=== PATIENT | female | born 1950 | race Caucasian/White ===

== ENCOUNTER → 2023-08-24 14:30 | Outpatient (REF) | payer MEDICARE, BC, SELFPAY | LOC: RAD 14:30 | PROVIDERS: ATTENDING PHYSICIAN Internal Medicine | DX: I73.9 Peripheral vascular disease, unspecified (principal) | CPT/HCPCS: 93925 ==

== ENCOUNTER → 2023-09-27 10:06 | Outpatient (REF) | payer MEDICARE, BC, SELFPAY ==
[2023-09-27 11:31] LABS: % Basophils 0.4 % (0-2); % Eosinophils 0.5 % (0-6); % Immature Granulocytes 0.2 % (0-0.5); % Lymphocytes 81.8 % (20.5-51.1); % Monocytes 2.4 % (1.7-9.3); % Neutrophils 14.7 % (42.2-75.2); Absolute Basophils 0.1 10^3/uL (0-0.2); Absolute Eosinophils 0.1 10^3/uL (0-0.7); Absolute Lymphocytes 14.5 10^3/uL (1.2-3.4); Absolute Monocytes 0.4 10^3/uL (0.1-0.6); Absolute Neutrophils 2.6 10^3/uL (1.4-6.5); Hematocrit 40.3 % (37.0-47.0); Hemoglobin 12.2 g/dL (12.0-16.0); Mean Corp Hgb Conc. 30.3 g/dL (33.0-37.0); Mean Corpuscular Hgb 22.6 pg (27.0-31.0); Mean Corpuscular Volume 74.6 fL (81.0-99.0); Mean Platelet Volume 8.8 fL (7.4-10.4); Nucleated Red Blood Cells % 0 %; Platelet Count 143 10^3/uL (130-400); Red Cell Dist. Width 17.2 % (11.5-14.5); White Blood Cell Count 17.8 10^3/uL (4.8-10.8)
[2023-09-27 12:33] LABS: ALT (SGPT) 15 U/L (0-35); AST (SGOT) 23 U/L (14-36); Albumin 4.1 g/dl (3.5-5.0); Alkaline Phosphatase 71 U/L (38-126); Blood Urea Nitrogen 14 mg/dl (7-17); Calcium 9.5 mg/dl (8.4-10.2); Carbon Dioxide 27 mmol/L (22-30); Chloride 103 mmol/L (98-107); Glucose 92 mg/dl (70-99); HDL Cholesterol 56 mg/dl; LDL Cholesterol, Calculated 85 mg/dl; Sodium 140 mmol/L (135-145); Total Bilirubin 0.5 mg/dl (0.2-1.3); Total Cholesterol 160 mg/dl (50-199); Total Protein 5.9 g/dl (6.3-8.2); Triglyceride 96 mg/dl (10-149); Very Low Density Lipoprotein 19 mg/dl (0-30); eGFR > 60.00
[2023-09-27 12:40] LABS: LDH 185 U/L (120-246)
[2023-09-28 05:52] LABS: IgG 380 mg/dl (700-1600)
== END ==
LOC: REG 10:06
PROVIDERS: ATTENDING PHYSICIAN Internal Medicine Hematology & Oncology; FAMILY PHYSICIAN Internal Medicine
DX: Z00.00 Encounter for general adult medical examination without abnormal findings (principal); K21.9 Gastro-esophageal reflux disease without esophagitis; Z68.24 Body mass index [BMI] 24.0-24.9, adult; E83.52 Hypercalcemia; C91.10 Chronic lymphocytic leukemia of B-cell type not having achieved remission; Z82.49 Family history of ischemic heart disease and other diseases of the circulatory system
CPT/HCPCS: 36415; 80053; 80061; 82784; 83615; 85025

== ENCOUNTER → 2023-10-25 16:29 | Outpatient (REF) | payer MEDICARE, BC, SELFPAY | LOC: RAD 16:29 | PROVIDERS: ATTENDING PHYSICIAN Internal Medicine | DX: R60.0 Localized edema (principal) | CPT/HCPCS: 93970 ==

== ENCOUNTER → 2023-11-01 13:04 | Outpatient (REF) | payer MEDICARE, BC, SELFPAY | LOC: WDC 13:04 | PROVIDERS: ATTENDING PHYSICIAN Internal Medicine | DX: Z12.31 Encounter for screening mammogram for malignant neoplasm of breast (principal) | CPT/HCPCS: 77063; 77067 ==

== ENCOUNTER 2023-11-07 13:52 | Outpatient (RCR) | payer MEDICARE, BC, SELFPAY | END 2023-11-07 23:59 | disposition home or self-care (01) | LOC: RPT 13:52 | PROVIDERS: ATTENDING PHYSICIAN Internal Medicine | DX: M54.16 Radiculopathy, lumbar region (principal); Z73.6 Limitation of activities due to disability | CPT/HCPCS: 97010; 97110; 97140; 97163 ==

== ENCOUNTER 2023-12-05 16:29 | Outpatient (RCR) | payer MEDICARE, BC, SELFPAY | END 2023-12-05 23:59 | disposition home or self-care (01) | LOC: RPT 16:29 | PROVIDERS: ATTENDING PHYSICIAN Internal Medicine | DX: M54.16 Radiculopathy, lumbar region (principal); Z73.6 Limitation of activities due to disability | CPT/HCPCS: 97010; 97110; 97112; 97140 ==

== ENCOUNTER 2023-12-14 17:37 | Outpatient (RCR) | payer MEDICARE, BC, SELFPAY | END 2023-12-14 23:59 | disposition home or self-care (01) | LOC: RPT 17:37 | PROVIDERS: ATTENDING PHYSICIAN Internal Medicine | DX: M54.16 Radiculopathy, lumbar region (principal); Z73.6 Limitation of activities due to disability; R26.2 Difficulty in walking, not elsewhere classified; M62.81 Muscle weakness (generalized) | CPT/HCPCS: 97010; 97112 ==

== ENCOUNTER → 2024-09-06 08:38 | Outpatient (REF) | payer MEDICARE, BC, SELFPAY ==
[2024-09-06 09:58] LABS: % Basophils 0.9 % (0-2); % Eosinophils 1.7 % (0-6); % Immature Granulocytes 0.5 % (0-0.5); % Lymphocytes 43.2 % (20.5-51.1); % Neutrophils 47.7 % (42.2-75.2); Absolute Basophils 0.1 10^3/uL (0-0.2); Absolute Eosinophils 0.1 10^3/uL (0-0.7); Absolute Lymphocytes 2.5 10^3/uL (1.2-3.4); Absolute Monocytes 0.4 10^3/uL (0.1-0.6); Absolute Neutrophils 2.8 10^3/uL (1.4-6.5); Hematocrit 42.3 % (37.0-47.0); Hemoglobin 13.1 g/dL (12.0-16.0); Mean Corpuscular Hgb 23.2 pg (27.0-31.0); Mean Corpuscular Volume 74.9 fL (81.0-99.0); Mean Platelet Volume 8.3 fL (7.4-10.4); Nucleated Red Blood Cells % 0 %; Platelet Count 144 10^3/uL (130-400); Red Blood Cell Count 5.65 10^6/uL (4.20-5.40); Red Cell Dist. Width 16.9 % (11.5-14.5); White Blood Cell Count 5.8 10^3/uL (4.8-10.8)
[2024-09-06 10:12] LABS: Ammonia < 9 umol/L (9-30); Lactic Acid 0.7 mmol/L (0.7-2.0)
[2024-09-06 10:37] LABS: ALT (SGPT) 16 U/L (0-35); AST (SGOT) 20 U/L (14-36); Alkaline Phosphatase 68 U/L (38-126); Blood Urea Nitrogen 16 mg/dl (7-17); Calcium 9.8 mg/dl (8.4-10.2); Carbon Dioxide 28 mmol/L (22-30); Chloride 103 mmol/L (98-107); Creatine Phosphokinase 60 U/L (30-135); Glucose 99 mg/dl (70-99); Potassium 4.5 mmol/L (3.5-5.1); Sodium 138 mmol/L (135-145); Total Bilirubin 0.6 mg/dl (0.2-1.3); Total Protein 5.9 g/dl (6.3-8.2); eGFR 58.75
[2024-09-06 10:41] LABS: Erythrocyte Sed Rate 7 mm/hour (0-20)
[2024-09-06 10:43] LABS: Free T4 1.37 ng/dl (0.78-2.19)
[2024-09-06 10:58] LABS: TSH 1.97 uIU/ml (0.47-4.68)
[2024-09-06 11:33] LABS: Folate 3.6 ng/ml (2.76-20); Vitamin B12 227 pg/ml (239-931)
[2024-09-08 01:02] LABS: Myeloperoxidase Antibody 0 AU/mL (0-19); Serine Protease-3, IgG 0 AU/mL (0-19)
[2024-09-08 01:06] LABS: SSA 52 (Ro)(ENA) Ab, IgG 66 AU/mL (0-40); SSA 60 (Ro)(ENA) Ab, IgG 0 AU/mL (0-40); SSB (La)(ENA) Ab, IgG 0 AU/mL (0-40)
[2024-09-08 02:29] LABS: ANA, IgG Reflex to HEp-2 None Detected (None Detected)
[2024-09-08 19:11] LABS: Carnitine Ester/Free Ratio 0.6 (0.1-1.0); Carnitine, Esterified 22 umol/L (5-29); Carnitine, Free 35 umol/L (25-60); Carnitine, Total 57 umol/L (34-86)
== END ==
LOC: REG 08:38
PROVIDERS: ATTENDING PHYSICIAN Psychiatry & Neurology Neurology
DX: G93.49 Other encephalopathy (principal); G62.9 Polyneuropathy, unspecified; R53.83 Other fatigue; G72.9 Myopathy, unspecified; E71.42 Carnitine deficiency due to inborn errors of metabolism; R76.0 Raised antibody titer; M35.03 Sjogren syndrome with myopathy; D51.9 Vitamin B12 deficiency anemia, unspecified; E53.1 Pyridoxine deficiency
CPT/HCPCS: 36415; 80053; 82140; 82379; 82550; 82607; 82746; 83516; 83605; 84207; 84425; 84439; 84443; 85025; 85652; 86038; 86235; 86430

== ENCOUNTER → 2024-11-01 14:11 | Outpatient (REF) | payer MEDICARE, BC, SELFPAY | LOC: WDC 14:11 | PROVIDERS: ATTENDING PHYSICIAN Internal Medicine | DX: Z12.31 Encounter for screening mammogram for malignant neoplasm of breast (principal) | CPT/HCPCS: 77063; 77067 ==

== ENCOUNTER → 2024-11-22 13:08 | Outpatient (REF) | payer MEDICARE, BC, SELFPAY | LOC: RAD 13:08 | PROVIDERS: ATTENDING PHYSICIAN Internal Medicine | DX: R05.3 Chronic cough (principal) | CPT/HCPCS: 71046 ==

== ENCOUNTER → 2025-04-15 10:07 | Outpatient (REF) | payer MEDICARE, BC, SELFPAY ==
[2025-04-15 11:48] LABS: Hematocrit 45.0 % (37.0-47.0); Hemoglobin 14.4 g/dL (12.0-16.0); Mean Corp Hgb Conc. 32.0 g/dL (33.0-37.0); Mean Corpuscular Volume 74.8 fL (81.0-99.0); Nucleated Red Blood Cells % 0 %; Platelet Count 185 10^3/uL (130-400); Red Cell Dist. Width 16.1 % (11.5-14.5)
[2025-04-15 11:52] LABS: Ammonia < 9 umol/L (9-30)
[2025-04-15 12:17] LABS: ALT (SGPT) 17 U/L (0-35); AST (SGOT) 21 U/L (14-36); Albumin 4.6 g/dl (3.5-5.0); Alkaline Phosphatase 61 U/L (38-126); Blood Urea Nitrogen 15 mg/dl (7-17); Calcium 10.0 mg/dl (8.4-10.2); Carbon Dioxide 30 mmol/L (22-30); Chloride 103 mmol/L (98-107); Glucose 94 mg/dl (70-99); Potassium 4.7 mmol/L (3.5-5.1); Sodium 139 mmol/L (135-145); Total Protein 6.6 g/dl (6.3-8.2); eGFR 58.75
[2025-04-15 12:35] LABS: Vitamin D, 25-OH*** 17.0 ng/mL (30-80)
[2025-04-15 12:48] LABS: TSH 1.59 uIU/ml (0.47-4.68)
[2025-04-15 13:24] LABS: Folate 3.3 ng/ml (2.76-20); Vitamin B12 277 pg/ml (239-931)
[2025-04-17 22:51] LABS: Vitamin B1, Whole Blood 124 nmol/L (70-180)
== END ==
LOC: REG 10:07
PROVIDERS: ATTENDING PHYSICIAN Psychiatry & Neurology Neurology; FAMILY PHYSICIAN Internal Medicine
DX: G93.49 Other encephalopathy (principal); E71.42 Carnitine deficiency due to inborn errors of metabolism; M35.03 Sjogren syndrome with myopathy; G62.9 Polyneuropathy, unspecified; M54.12 Radiculopathy, cervical region; M54.16 Radiculopathy, lumbar region; R53.83 Other fatigue; Z79.899 Other long term (current) drug therapy
CPT/HCPCS: 36415; 80053; 82140; 82306; 82379; 82550; 82607; 82746; 83605; 84207; 84425; 84439; 84443; 85025

== ENCOUNTER → 2025-05-17 09:40 | Outpatient (REF) | payer MEDICARE, BC, SELFPAY ==
[2025-05-17 10:42] LABS: Iron 44 ug/dl (37-170)
== END ==
LOC: REG 09:40
PROVIDERS: ATTENDING PHYSICIAN Internal Medicine
DX: M79.661 Pain in right lower leg (principal); R53.83 Other fatigue; R71.8 Other abnormality of red blood cells
CPT/HCPCS: 36415; 73590; 83540

== ENCOUNTER → 2025-05-28 12:41 | Outpatient (REF) | payer MEDICARE, BC, SELFPAY ==
[2025-05-28 13:20] LABS: Hematocrit 42.2 % (37.0-47.0); Hemoglobin 13.8 g/dL (12.0-16.0); Mean Corp Hgb Conc. 32.7 g/dL (33.0-37.0); Mean Corpuscular Volume 75.2 fL (81.0-99.0); Nucleated Red Blood Cells % 0 %; Platelet Count 175 10^3/uL (130-400); Red Cell Dist. Width 15.6 % (11.5-14.5)
[2025-05-28 13:58] LABS: Iron 63 ug/dl (37-170)
[2025-05-28 14:30] LABS: Total Iron Binding Capacity 377 ug/dl (265-497)
[2025-05-28 14:32] LABS: Ferritin 21.5 ng/ml (11.1-264.0)
[2025-05-29 15:55] LABS: Source Blood
== END ==
LOC: REG 12:41
PROVIDERS: ATTENDING PHYSICIAN Internal Medicine Hematology & Oncology; FAMILY PHYSICIAN Internal Medicine
DX: C91.10 Chronic lymphocytic leukemia of B-cell type not having achieved remission (principal); D51.9 Vitamin B12 deficiency anemia, unspecified; R71.8 Other abnormality of red blood cells
CPT/HCPCS: 36415; 82728; 83540; 83550; 85025